=== PATIENT | female | born 2000 | race Caucasian/White ===

== ENCOUNTER 2020-11-12 08:22 | Outpatient (CLI) | payer OTHER, SELFPAY ==
[2020-11-12 09:37] LABS: SPREG INTERNAL CONTROL Positive; Serum Qual hCG Positive
== END 2020-11-12 08:23 | disposition home or self-care (01) ==
PROVIDERS: PCP Family Medicine; Visit Provider Nurse Practitioner Psychiatric/Mental Health
DX: N92.6 Irregular menstruation, unspecified (principal)
CPT/HCPCS: 36415; 84702; 84703

== ENCOUNTER 2021-01-18 00:13 | Emergency (ER) | payer OTHER, SELFPAY ==
[2021-01-18 00:15] VITALS: BP 136/84; PULSE 67; RESP 20; TEMP 36.6; O2SAT 97
--- NOTE | 2021-01-18 00:19 | ED.HA ---
HPI - Headache General Chief Complaint: Headache Stated Complaint: PAIN Time Seen by Provider: 01/18/21 00:19 Source: patient and family Mode of arrival: ambulatory Limitations: no limitations History of Present Illness HPI Narrative: 20-year-old woman comes in today complaining of a throbbing bitemporal headache which started while she was eating dinner this evening. Patient states the pain came on gradually and is associated with nausea, photophobia and increased pain with loud noise. She states she has had migraines in the past but has not had any for some time. She has had no stiff neck, vomiting, fever, cough or cold symptoms, head injury, changes in vision sore throat, head injury or sick exposures. she states she did not know what it is okay to take during her . She is at 17 weeks. MD elicited complaint: migraine Onset (ago): hour(s) (6) Onset description: gradually and while at rest Location: temporal Severity: moderate Quality & Timing: throbbing Exacerbating factors: light and noise Relieving factors: nothing Context: occurred at rest Associated symptoms: nausea Treatments prior to arrival: none Related Data Allergies Allergy/AdvReac Type Severity Reaction Status Date / Time No Known Allergies Allergy Verified 01/18/21 00:33 Review of Systems Review of Systems: All systems reviewed & are unremarkable except as noted in HPI and below Constitutional: Constitutional: Denies chills, Denies fever(s) and Denies weakness Eyes: Eyes: Denies change in vision and Reports photophobia ENT: Denies nasal congestion and Denies sore throat Cardiovascular: Cardiovascular: Reports chest pain ( Earlier this evening. It has abated.) and Denies radiating jaw, neck or arm pain Respiratory: Respiratory: Denies cough, Denies dyspnea and Denies wheezing Gastrointestinal: Gastrointestinal: Denies abdominal pain, Reports nausea and Denies vomiting Genitourinary: Genitourinary: Denies nocturia and Denies dysuria Musculoskeletal: Musculoskeletal: Denies back pain, Denies arthralgias and Denies joint swelling Integumentary/Breasts: Skin/Breast: Denies pruritus, Denies erythema and Denies rash Neurologic: Reports as per HPI, Denies vertigo, Denies dizziness, Denies syncope, Denies focal weakness and Denies numbness Endocrine: Endocrine: Denies polydipsia and Denies polyuria Hematologic/Lymphatic: Hematologic/Lymphatic: Denies easy bleeding and Denies easy bruising Allergic/Immunologic: Allergic/Immunologic: Denies lip swelling and Denies throat swelling [facility] Past Medical History Medical History (Updated 01/18/21 @ 00:33 by Kenrick Etienne MD) Migraines Social History Social History (Updated 01/18/21 @ 00:31 by Kenrick Etienne MD) Smoking status: Current every day smoker Alcohol intake: never Substance use: never Living arrangements: with family Exam Const: General: healthy appearing and alert Orientation/consciousness: patient oriented x3 Limitations: no limitations Other: [id number] acute distress HENMT: Ears: external ears normal and TM's normal bilaterally General nose exam: Normal nares present Face and sinus: normal facial exam Mouth: Yes moist mucous membranes abnormal Throat: posterior oropharynx normal Eyes: Conjunctivae: conjunctivae normal Pupils: Equal, round and reactive pupils present EOM: EOMs intact bilaterally Resp: Effort & Inspection: normal respiratory effort and not labored Auscultation: clear to auscultation bilaterally, no rales, no rhonchi and no wheezes Cardio: Rate: regular rate Rhythm: regular rhythm Heart sounds: no murmurs Skin: General skin exam: normal color, no jaundice and no pallor Rashes: no rashes Neuro: General: patient oriented x3, moves all extremities, no meningeal signs and CN's II-XI intact bilaterally Speech: normal speech Gait exam (Neuro): Normal gait present Other: normal [id number]. Extrem: General: normal to insp
[2021-01-18] MEDS: PROMETHAZINE HCL 25 MG/ML AMPUL IM (00:43)
[2021-01-18] MEDS: ACETAMINOPHEN 500 MG TABLET 1000 MG PO (00:43)
[2021-01-18 01:02] LABS: Add Urine Microscopic? NO; Appearance Urine Clear (Clear); Bilirubin Urine Negative (Negative); Blood Urine Negative (Negative); Color Urine Light Yellow (Yellow); Glucose Urine UA Negative (Negative); Ketones Urine Negative (Negative); Leukocyte Esterase Ur Negative (Negative); Nitrate Urine Negative (Negative); Protein Urine Negative (Negative); Specific Grav Ur <= 1.005 (1.010-1.020); Urobilinogen Urine 0.2 mg/dL (0.2-1.0); pH Urine 6.5 (5.0-8.0)
[2021-01-18 01:17] VITALS: BP 106/71; PULSE 69; RESP 18; TEMP 36.6; O2SAT 97
== END 2021-01-18 01:20 | disposition home or self-care (01) ==
PROVIDERS: Emergency Provider Emergency Medicine
DX: G43.009 Migraine without aura, not intractable, without status migrainosus (principal)
CPT/HCPCS: 81003; 96372; 99283; J2550

== ENCOUNTER 2021-06-26 01:42 | Inpatient (IN) | payer OTHER, MEDICAID, SELFPAY ==
[2021-06-26] VITALS (93 sets, daily range): BP systolic 87–121; BP diastolic 50–86; PULSE 60–134; RESP 18; TEMP 36.1–36.7; O2SAT 83–100; BMI 32.5
--- NOTE | 2021-06-26 01:42 | LDADM ---
This patient, Danielle Serrato, was admitted to Labor/Delivery/Recovery 106 on 06/26/21 at 01:42. Plans for labor, pain management and were discussed with patient. Patient/family oriented to hospital policies and general routines including ID bracelet, bed and alarms, visiting hours, pain management, procedures, bathroom and other care routines, personal items, smoking policy, room service/diet and guest tray routines, security routines, and visiting hours. Patient/Family are encouraged to report perceived risks to care and to ask questions if they do not understand what they are told or what they should do. See OBIX for further documentation.
[2021-06-26] MEDS: LACTATED RINGERS 1,000 ML 125 ML IV CONT ×2 (02:18→03:03)
[2021-06-26 02:26] LABS: Basophils Percent Auto 0.2 % (0.2-1.2); Eosinophils Absolute Auto 0.1 K/mm3 (0-0.3); Eosinophils Percent Auto 0.5 % (0-4.4); Hematocrit 34.6 % (37.0-47.0); Hemoglobin 11.2 g/dL (12.0-15.0); Immature Granulocyte Absolute 0.16 K/mm3 (0.00-0.031); Lymphocytes Absolute Auto 2.67 K/mm3 (0.9-3.2); Lymphocytes Percent Auto 16.1 % (18.3-44.2); Mean Corpuscular HGB Conc 32.4 g/dl (32-36); Mean Corpuscular Hemoglobin 29.6 pg (26-34); Mean Corpuscular Volume 91.3 fl (80-100); Mean Platelet Volume 10.9 fl (7.4-10.4); Monocytes Absolute Auto 1.3 K/mm3 (0.1-0.6); Monocytes Percent Auto 8.1 % (2.6-8.5); Neutrophils Absolute Auto 12.2 K/mm3 (1.3-6.7); Neutrophils Percent Auto 74.1 % (45.5-73.1); Platelet Count Result 237 k/mm3 (150-375); Red Blood Count 3.79 M/mm3 (4.2-5.4); Red Cell Distribution Width 13.3 % (11.5-14.5); White Blood Count 16.5 K/mm3 (4.5-10.0)
--- NOTE | 2021-06-26 06:34 | PM.IMHP ---
H&P: HPI History of Present Illness Date/Time: 06/26/21 06:34 Chief Complaint: intrauterine at term spontaneous labor Narrative: 21 yo at 40w0d who presents in labor. Pt reports regular contractions. She denies any leakage of fluid or vaginal bleeding. Her has been uncomplicated thus far. Review of Systems Cardiovascular: Cardiovascular: Denies chest pain, Denies leg edema, Denies palpitations, Denies dyspnea and Denies dyspnea on exertion Respiratory: Respiratory: Denies cough, Denies dyspnea and Denies dyspnea on exertion Gastrointestinal: Gastrointestinal: Denies abdominal pain, Denies constipation, Denies diarrhea, Denies nausea and Denies vomiting Genitourinary: Genitourinary: Denies hematuria, Denies urinary frequency, Denies dysuria, Denies pelvic pain, Denies urinary incontinence and Denies vaginal discharge Neurologic: Reports system reviewed and no additional complaints, except as documented Psychiatric: Psychiatric: Reports no additional psychiatric complaints Endocrine: Endocrine: Denies palpitations PMFSH Past Medical History Medical History (Updated 06/26/21 @ 06:37 by Nima Simmons MD) Migraines Family History Family History (Updated 05/27/21 @ 12:27 by Renée Beaulieu RN) Father Testicular cancer Grandparent Hypertension History of blood clots Social History Social History (Updated 01/18/21 @ 00:31 by Kenrick Etienne MD) Smoking status: Never smoker Alcohol intake: never Substance use: never Spiritual care concerns: No Meds Home Medications and Allergies Home Medications Medication Instructions Recorded Confirmed Type PNV cmb#95-ferrous fumarate-FA 1 tablet PO DAILY 06/26/21 06/26/21 History [] Allergies Allergy/AdvReac Type Severity Reaction Status Date / Time latex Allergy Itching Verified 05/27/21 12:35 Vital Signs Vital Signs - 24 hr 06/26/21 02:37 06/26/21 02:42 06/26/21 02:43 Temperature Pulse Rate 89 Blood Pressure 117/75 Pulse Oximetry 100 99 06/26/21 02:46 06/26/21 02:47 06/26/21 02:49 Temperature Pulse Rate 78 84 Blood Pressure 121/86 116/72 Pulse Oximetry 100 06/26/21 02:51 06/26/21 02:52 06/26/21 02:54 Temperature Pulse Rate 95 94 86 Blood Pressure 119/80 121/69 120/63 Pulse Oximetry 100 06/26/21 02:57 06/26/21 03:00 06/26/21 03:02 Temperature Pulse Rate 92 91 Blood Pressure 111/61 110/53 L Pulse Oximetry 100 99 06/26/21 03:03 06/26/21 03:06 06/26/21 03:07 Temperature Pulse Rate 82 74 Blood Pressure 94/53 L 98/53 L Pulse Oximetry 100 06/26/21 03:09 06/26/21 03:12 06/26/21 03:15 Temperature Pulse Rate 80 83 84 Blood Pressure 93/59 L 108/53 L 102/55 L Pulse Oximetry 100 06/26/21 03:17 06/26/21 03:18 06/26/21 03:21 Temperature Pulse Rate 76 79 Blood Pressure 98/53 L 87/52 L Pulse Oximetry 99 06/26/21 03:22 06/26/21 03:27 06/26/21 03:30 Temperature 36.6 C Pulse Rate 71 Blood Pressure 102/54 L Pulse Oximetry 99 100 06/26/21 03:32 06/26/21 03:37 06/26/21 03:42 Temperature Pulse Rate Blood Pressure Pulse Oximetry 100 99 100 06/26/21 03:45 06/26/21 03:47 06/26/21 03:52 Temperature Pulse Rate 79 Blood Pressure 102/60 Pulse Oximetry 100 100 06/26/21 03:57 06/26/21 04:00 06/26/21 04:02 Temperature Pulse Rate 75 Blood Pressure 99/56 L Pulse Oximetry 100 100 06/26/21 04:07 06/26/21 04:12 06/26/21 04:15 Temperature Pulse Rate 76 Blood Pressure 97/52 L Pulse Oximetry 100 99 06/26/21 04:17 06/26/21 04:22 06/26/21 04:27 Temperature Pulse Rate Blood Pressure Pulse Oximetry 99 99 99 06/26/21 04:30 06/26/21 04:32 06/26/21 04:37 Temperature Pulse Rate 75 Blood Pressure 110/59 L Pulse Oximetry 99 99 06/26/21 04:42 06/26/21 04:45 06/26/21 04:47 Temperature Pulse Rate 98 Blood Pressure 99/72 L Pulse Oxime
--- NOTE | 2021-06-26 08:06 | PM.OBPRVD ---
OB - Delivery Note Procedure Delivery date: 06/26/21 Procedure: Patient pushed for a spontaneous vaginal delivery. The fetus was delivered atraumatically and placed on the maternal abdomen. The cord was clamped and cut after 1 minute of life. The cord was double clamped and cut and a segment of cord was collected for cord gases. Cord blood was collected for blood type and Coomb's testing. The placenta delivered spontaneously and was noted to be intact. The perineum was inspected and there were bilateral 1st degree vaginal lacerations. The lacerations were repaired with 3-0 vicryl in the usual fashion. The uterus was firm and good hemostasis was noted. The patient and fetus were stable in the delivery room. Intrapartal events: None Induction method: none Delivery monitor: external FHT Route of delivery: Episiotomy description: None Laceration Description: Vaginal - 1st Degree (bilateral) Delivery repair: vicryl Specimen: No Quantitative Blood Loss (ml): 250 Anesthesia type: Epidural Disposition: floor () Complications: No immediate complications [place] Baby Date of : 06/26/21 Time of : 07:45 Weeks of gestation at delivery: 40 Infant gender: Male Weight (pounds): 7 Weight (ounces): 8 presentation: vertex position: Right Occiput Anterior Placenta delivery description: Spontaneous cord vessel description: 3 Vessels and Nuchal Cord score one minute: 8 score five minutes: 9
[2021-06-26] MEDS: OXYTOCIN 30 UNITS/NS 500 ML 30 UNITS/500 ML BAG 125 UNITS IV CONT (09:08)
--- NOTE | 2021-06-26 11:17 | PC.NURSE ---
Patient transferred to post room #280 per wheelchair from labor and delivery. Support person present. Oriented to unit, room, information board, rooming in, admission packet and security measures. Patient verbalizes understanding.
[2021-06-26] MEDS: IBUPROFEN 600 MG TABLET PO (11:30)
[2021-06-26] MEDS: BENZOCAINE 20% AER SPR (*SP) 56 GM CAN 1 SPRAY TOPICAL (11:30)
--- NOTE | 2021-06-26 11:50 | PC.NURSE ---
Mother called out for assist with feeding, reporting eagerly fed for first feeding. . Infant is able to freely thrust tongue to gum ridge and flange both lips, frenulum appears to be tight. Skin is intact on both nipples, no redness and bruising noted. Reviewed feeding cues, frequencies, duration of feedings, feeding elimination flow sheet, and signs of adequate intake. Demonstrated stimulation techniques to wake infant for feeding. Assisted with to breast. Reviewed positioning/alignment in cross cradle, holding breast in ?U? hold and guided asymmetrical latch on. Reviewed rational for each. able to latch correctly within a few attempts. nursed eagerly with steady draws and occasional swallowing noted, some pausing noted. Reviewed signs of a correct latch, effective nursing and suck swallow ratio. Suggested mother stimulate while feeding to increase stimulation for milk supply, for increased intake and to assist with maintaining deep latch. would slip to shallow latch causing tenderness. Demonstrated how to adjust latch more deeply while feeding as needed. Mother reports she can feel the difference in latch with less tenderness. Nipple care reviewed of lanolin after feedings, warm compresses as needed. Instructed mother to call out for RN assistance if she is unable to latch infant for feeding or she has discomfort with nursing. Instructed feeding should be initiated three hours from start of last feeding or if feeding cues are noted before. Mother voiced understanding of information shared.
[2021-06-26] MEDS: WITCH HAZEL 40 PADS 1 PAD TOPICAL (12:03)
[2021-06-26] MEDS: LANOLIN (LANSINOH) 7.5 GM CREAM 1 APPLIC TOPICAL (12:04)
[2021-06-26] MEDS: ACETAMINOPHEN 325 MG TABLET 650 MG PO (16:27)
[2021-06-26] MEDS: DOCUSATE SODIUM 100 MG CAPSULE PO (16:30)
--- NOTE | 2021-06-26 16:30 | PC.NURSE ---
Pt introductions made and plan of care discussed per post , pain management, breast feeding, daily care activities. PT and fob both recipients of such instructions and verbalized understanding of such care. Fob may have a barrier to learning in that he speaks fluent maltese and minimal togolese. PT and fob both received instructions per one to one discussion, mom baby care guide and demonstrations. PT verbalized understanding of such care.
[2021-06-27 00:26] VITALS: BP 111/80; PULSE 88; RESP 18; TEMP 36.8; O2SAT 99
[2021-06-27] MEDS: IBUPROFEN 600 MG TABLET PO ×3 (01:09→17:48)
[2021-06-27 04:15] VITALS: BP 108/61; PULSE 87; RESP 18; TEMP 36.6; O2SAT 99
[2021-06-27 04:48] LABS: Hematocrit 30.5 % (37.0-47.0); Hemoglobin 9.9 g/dL (12.0-15.0)
--- NOTE | 2021-06-27 07:13 | PC.NURSE ---
Pt introductions made and plan of care discussed per post , pain management, breast feeding, daily care activities. PT and fob both recipients of such instructions and verbalized understanding of such care. Fob may have a barrier to learning in that he speaks fluent mongolian and minimal citizen of [place]. PT and fob both received instructions per one to one discussion, mom baby care guide and demonstrations. PT verbalized understanding of such care.
--- NOTE | 2021-06-27 08:08 | PM.OBPNVD ---
OB - PN: Subj Subjective Date/time seen: 06/27/21 08:08 Patient comments: no complaints, pain well controlled and tolerating diet [place] feeding status: exclusively breast feeding Narrative: patient doing well this AM. No complaints. Pain is well controlled. She reports minimal bleeding. She is ambulating and voiding without difficulty. She is tolerating PO. She denies N/V, fever, chills. OB - PN: Obj Data Labs CBC & Chem 7: 06/27/21 04:05 Labs: Laboratory Results - last 24 hr 06/27/21 04:05 Hgb 9.9 L Hct 30.5 L OB - PN A/P Plan day: 1 Plan: routine care Comments: patient doing well H/H 9.03/26, continue iron supplementation plan for infant circumcision today. risks, benefits, alternatives discussed. patient consented for procedure continue routine care Time Spent With Patient Time: Total time spent is greater than 50% in coordination of care (as documented) at patient's floor/unit and/or counseling patient: Time with patient: less than 15 minutes Review of Systems Review of Systems: All systems reviewed & are unremarkable except as noted in HPI and below Exam Const: General: comfortable and no acute distress Resp: Effort & Inspection: normal respiratory effort Cardio: Rate: regular rate GI: GI Palp: Yes Soft to palpation and No Tenderness to palpation present (GI) Auscultation: normal bowel sounds Other: fundus firm and below umbilicus. Psych: Affect: normal affect
--- NOTE | 2021-06-27 08:09 | PM.OBDSVD ---
DS: Admitting Diagnosis Discharge Date 06/28/21 Admitting Diagnosis intrauterine at term spontaneous labor OB - DS: Summary OB Procedures : None OB Procedures Intrapartum: Spontaneous Vag Delivery OB Procedures: : None Status at Discharge Functional status at discharge: independent ambulation Overall status at discharge: patient is back to baseline Time Spent with Patient Time attestation: Total time spent providing and/or coordinating discharge services: Time spent: Less than 30 minutes Exam Const: General: comfortable and no acute distress Resp: Effort & Inspection: normal respiratory effort Auscultation: clear to auscultation bilaterally Cardio: Rate: regular rate GI: GI Palp: Yes Soft to palpation Auscultation: normal bowel sounds Other: Fundus firm below umbilicus Psych: Appearance: grossly normal Mental Status: mental status grossly normal Affect: normal affect DS: Data Data Completed and Pending Labs on day of discharge: Labs from last 24 hours 06/27/21 04:05 Hgb 9.9 L Hct 30.5 L Discharge Plan Discharge Discharging Clinician: Nmia Simmons Patient Disposition: Home, Self-Care Activity: as tolerated and pelvic rest Diet: regular Discharge Instructions: Education: Mom and Baby Guide Given to: Mother Follow-Up: Call your delivering provider's office for an appointment to be seen in: 6 Weeks Mom and baby should come to the [facility] for the follow-up appointment. Appointment Date/Time: June 29, 2021 at 8:00 am What to expect at your follow-up visit: Blood Pressure Check Physical Assessment Call [phone] if you are unable to keep your appointment time. BREAST CARE: * Wear a snug supportive bra. * For engorgement discomfort: Breast Feeding: * Apply warm moist washcloths * Express milk as needed to relieve engorgement * Wear loose clothing EPISIOTOMY/PERINEAL CARE: * Until bleeding stops, use your maria l bottle after urinating * Change your pad frequently throughout the day * You may take sitz baths several times a day (fill your bathtub with warm water and soak for 20 minutes.) Do NOT bathe in the water * No tub baths until seen by your physician - You may shower ACTIVITY: * Rest as much as possible. * Do not exercise or lift anything heavier than your baby (such as laundry or other children.) * Avoid stairs or driving as much as possible. * Do not put anything into the vagina. No douching, tampons, or sexual activity until seen by physician. NOTIFY PHYSICIAN IF YOU HAVE ANY QUESTIONS OR IF ANY OF THE FOLLOWING SYMPTOMS OCCUR: * If your episiotomy becomes red, swollen, or more painful than what you have experienced in the hospital. * If your vaginal bleeding becomes foul smelling. * If your vaginal bleeding becomes more heavy than a period or if your bleeding changes from pink to bright red. However, you may pass an occasional walnut-sized clot once or twice for the first week . * If you experience a sharp, shooting pain in you calves. * If you discover a hard, reddened area on your breast or if you experience flu-like symptoms. DIET: * Eat regular, well-balanced meals. * Drink plenty of fluids daily. If , drink to thirst. Patient Instructions: Vaginal Delivery (DC) Follow-up/Referrals: Nathaniel Bruno MD [Physician] - 6 Weeks Discharge Medications: New acetaminophen [Mapap (acetaminophen)] 325 mg Tablet 650 mg PO Q6H PRN (Reason: Mild Pain (1-3) Or Headache) Qty: 30 RF: 0 polysaccharide iron complex 150 mg iron Capsule 150 mg PO BIDWM Qty: 60 RF: 0 ibuprofen 600 mg Tablet 600 mg PO Q6H PRN (Reason: Cramping) Qty: 30 RF: 0 Continued PNV cmb#95-ferrous fumarate-FA [] 28 mg iron- 800 mcg Tablet 1 tablet PO DAILY RF: 0 Date of admission: 06/26/21 01:42 Primary Care Provider: Xin
[2021-06-27] MEDS: MULTIVIT/MIN/PREN/FOL AC/IRON TABLET 1 TAB PO (10:05)
[2021-06-27] MEDS: POLYSACCHARIDE IRON COMPLEX 150 MG CAPSULE PO ×2 (10:05→17:49)
[2021-06-27] MEDS: DOCUSATE SODIUM 100 MG CAPSULE PO ×2 (10:05→17:49)
[2021-06-27] MEDS: ACETAMINOPHEN 325 MG TABLET 650 MG PO ×2 (10:06→17:48)
[2021-06-27 10:15] VITALS: BP 103/63; PULSE 86; RESP 18; TEMP 36.2; O2SAT 100
[2021-06-27 19:45] VITALS: BP 115/68; PULSE 85; RESP 16; TEMP 36.9; O2SAT 99
[2021-06-28] MEDS: ACETAMINOPHEN 325 MG TABLET 650 MG PO (02:37)
[2021-06-28] MEDS: IBUPROFEN 600 MG TABLET PO (02:37)
[2021-06-28 08:00] VITALS: BP 103/73; PULSE 87; RESP 18; TEMP 36.4; O2SAT 100
[2021-06-28] MEDS: BENZOCAINE 20% AER SPR (*SP) 56 GM CAN 1 SPRAY TOPICAL (08:28)
[2021-06-28] MEDS: WITCH HAZEL 40 PADS 1 PAD TOPICAL (08:28)
[2021-06-28] MEDS: MULTIVIT/MIN/PREN/FOL AC/IRON TABLET 1 TAB PO (08:28)
[2021-06-28] MEDS: DOCUSATE SODIUM 100 MG CAPSULE PO (08:28)
[2021-06-28] MEDS: POLYSACCHARIDE IRON COMPLEX 150 MG CAPSULE PO (08:30)
[2021-06-28] MEDS: LANOLIN (LANSINOH) 7.5 GM CREAM 1 APPLIC TOPICAL (08:31)
--- NOTE | 2021-06-28 09:00 | PC.NURSE ---
Patient viewed the discharge video Mother & Baby Care, The First Two Weeks . Patient was given the opportunity and encouraged to ask questions. Patient verbalized understanding of information shared and has been given the mother/baby guide for home reference.
--- NOTE | 2021-06-28 09:28 | PC.NURSE ---
Self care and infant care discharge instructions given including follow up visit date and time. Mother verbalized understanding. No questions or concerns voiced. Very pleasant and cooperative.
[2021-06-29 08:47] VITALS: BP 118/67; PULSE 82; RESP 20; TEMP 37.1; O2SAT 100
[2021-06-29 09:28] LABS: Rapid Plasma Reagin Non-Reactive (NonReactive)
== END 2021-06-28 10:36 | disposition home or self-care (01) | DRG 807 ==
LOC: ANHLDR 02:14 → ANHOB2 06-27 08:10 → ANHLDR 07-01 09:35 → ANHOB2 07-01 09:35
PROVIDERS: Admitting Provider Student in an Organized Health Care Education/Training Program; PCP Family Medicine; Visit Provider Student in an Organized Health Care Education/Training Program
DX: O76 Abnormality in fetal heart rate and rhythm complicating labor and delivery (principal); Z37.0 Single live birth; O70.0 First degree perineal laceration during delivery; O69.81X0 Labor and delivery complicated by cord around neck, without compression, not applicable or unspecified; Z3A.40 40 weeks gestation of pregnancy
CPT/HCPCS: 36415; 85014; 85018; 85025; 86592; 86850; 86900; 86901; A9270; J2590; J2795; J7120

== ENCOUNTER 2024-09-18 06:16 | Inpatient (IN) | payer OTHER, MEDICAID, SELFPAY ==
[2024-09-09 20:15] VITALS: BP 115/77; PULSE 77
[2024-09-09 20:30] VITALS: BP 111/72; PULSE 77
[2024-09-09 20:45] VITALS: BP 114/71; PULSE 81
[2024-09-18] VITALS (58 sets, daily range): BP systolic 94–135; BP diastolic 41–118; PULSE 63–131; RESP 16–18; TEMP 36.3–36.8; O2SAT 95–100; BMI 32.9
--- NOTE | 2024-09-18 07:14 | P.PNAN_ITS ---
Anes - Eval Pre Procedure Procedure: labor epidural Date/Time: 09/18/24 07:14 Surgeon: lázaro Preop Diagnosis: pain during labor Pre Op Diagnosis: IOL Patient Data Age: 24 Gender: F Height: Weight: Last Vital Signs Pulse 81 09/09/24 20:45 BP 114/71 09/09/24 20:45 Allergies Allergy/AdvReac Type Severity Reaction Status Date / Time latex Allergy Itching Verified 08/15/24 13:47 Home Medications ?Medication ?Instructions ?Recorded ?Confirmed ?Type vit no.95-ferrous 1 tablet PO DAILY 06/26/21 08/15/24 History fumarate 28 mg-folic acid 800 mcg tablet () acetaminophen 325 mg tablet (Mapap 650 mg (2 x 325 mg) PO Q6H PRN 06/27/21 08/15/24 Rx (acetaminophen)) Mild Pain (1-3) Or Headache #30 tabs Patient hx anesthesia problems: none Family hx anesthesia problems: none Results Review: All pre-operative results and documents have been reviewed as part of the pre- operative evaluation. PMFSH Past Medical History Medical History (Updated 09/18/24 @ 07:15 by Gerri Vega CRNA) IUP (intrauterine ), incidental Depression Anxiety Migraines Family History Family History (Updated 08/15/24 @ 13:34 by Joslyn Grimes RN) Father Testicular cancer Grandparent History of blood clots Hypertension Mother Hypertension Social History Social History (Updated 01/18/21 @ 00:31 by Kenrick Etienne, ) Smoking status: Never smoker Alcohol intake: never Substance use: never Living arrangements: with family Spiritual care concerns: No Exam Day of Procedure 09/18/24 07:14
[2024-09-18 07:19] LABS: Basophils Absolute Auto 0.1 K/mm3 (0.0-0.1); Basophils Percent Auto 0.5 % (0.2-1.2); Eosinophils Absolute Auto 0.1 K/mm3 (0-0.3); Eosinophils Percent Auto 0.8 % (0-4.4); Hematocrit 35.9 % (37.0-47.0); Hemoglobin 11.6 g/dL (12.0-15.0); Immature Granulocyte Absolute 0.04 K/mm3 (0.00-0.031); Immature Granulocyte Percent A 0.3 % (0-0.5); Lymphocytes Absolute Auto 2.67 K/mm3 (0.9-3.2); Lymphocytes Percent Auto 23.4 % (18.3-44.2); Mean Corpuscular HGB Conc 32.3 g/dl (32-36); Mean Corpuscular Hemoglobin 28.2 pg (26-34); Mean Corpuscular Volume 87.3 fl (80-100); Mean Platelet Volume 11.9 fl (7.4-10.4); Monocytes Absolute Auto 0.9 K/mm3 (0.1-0.6); Neutrophils Absolute Auto 7.7 K/mm3 (1.3-6.7); Platelet Count Result 211 k/mm3 (150-375); Red Blood Count 4.11 M/mm3 (4.2-5.4); Red Cell Distribution Width 14.3 % (11.5-14.5); White Blood Count 11.4 K/mm3 (4.5-10.0)
[2024-09-18] MEDS: LACTATED RINGERS 1,000 ML 125 ML IV CONT (07:33)
[2024-09-18] MEDS: OXYTOCIN 30 UNITS/NS 500 ML 30 UNITS/500 ML BAG IV CONT (07:34)
[2024-09-18 08:14] LABS: HIV 1/2 Ab P24 Ag Result Negative (Negative)
--- NOTE | 2024-09-18 08:17 | LDADM ---
This patient, Danielle Segura, was admitted to Labor/Delivery/Recovery 106 on 09/18/24 at 06:16. Plans for labor, pain management and were discussed with patient. Patient/family oriented to hospital policies and general routines including ID bracelet, bed and alarms, visiting hours, pain management, procedures, bathroom and other care routines, personal items, smoking policy, room service/diet and guest tray routines, security routines, and visiting hours. Patient/Family are encouraged to report perceived risks to care and to ask questions if they do not understand what they are told or what they should do. See OBIX for further documentation.
--- NOTE | 2024-09-18 08:53 | WPDOBADMIT ---
Obstetrics - Admit Note Admission Note: record reviewed. Additions to the history and/or subsequent changes in the physical findings follow. 26 y/o at 41 weeks here for induction of labor. GBS neg. AVSS NST reactive TOCO: contractions every 3-4 min ABD soft, nontender, gravid, vertex EXT nontender Cervix 4/80/-2. AROM with clear fluid. IUPC placed. Vertex. A: IUP at term with favorable cervix. P: Oxytocin. Anticipate .
[2024-09-18 09:43] LABS: Syphilis IgG/IgM Antibody Negative (Negative)
--- NOTE | 2024-09-18 11:31 | PM.OBPRVD ---
OB - Vaginal Delivery Note Procedure Delivery date: 09/18/24 Events: Elective Induction of Labor Induction method: Per Pitocin Protocol Delivery augmentation: Rupture of Membranes Delivery monitor: External FHT, External Uterine and Internal Uterine Route of delivery: Laceration Description: Perineal - 2nd Degree Delivery repair: vicryl (3-0) Specimen: Yes (cord blood) Quantitative Blood Loss (ml): 240 Anesthesia type: Local (1% lidocaine) Disposition: PACU Complications: None Narrative: 24 y/o at 41 weeks gestation who presented to the hospital for induction of labor. Oxytocin was administered intravenously. Amniotomy was performed with return of clear fluid. Her labor progressed and her cervix dilated completely. She pushed with good effort and delivered the 's head to the perineum, followed by the body. The nose and mouth were bulb suctioned. After a delay, the cord was clamped and cut. The infant was handed off the field. Cord blood was collected. The placenta delivered spontaneously and was grossly normal in appearance. The usual 3 vessel cord was noted. A second degree midline perineal laceration was sustained. This was infiltrated with 12 mL 1% lidocaine and reapproximated using 3 0 Vicryl in the usual layered fashion. Excellent hemostasis resulted as did excellent reapproximation of the normal anatomy. Needle and instrument counts were correct. The patient was taken to recovery room in stable condition. The went to the nursery in stable condition. I was present and scrubbed for the entire delivery. Baby Date of : 09/18/24 Time of : 11:10 Gestational Age by Date: 41 gender: Female Weight (pounds): 8 Weight (ounces): 2 presentation: vertex position: Left Occiput Anterior Placenta delivery description: Spontaneous and Normal Configuration Cord Vessel Description: 3 Vessels and Delayed Cord Clamping score one minute: 8 score five minutes: 9
--- NOTE | 2024-09-18 11:33 | P.DS_ITS ---
DS: Admitting Diagnosis Discharge Date 09/19/24 Admitting Diagnosis IUP a 41 weeks DS: Discharge Diagnosis Discharge Diagnosis (1) (normal spontaneous vaginal delivery): Code(s): O80 - Encounter for full-term uncomplicated delivery Status: Acute OB - DS: Summary OB Procedures : None OB Procedures Intrapartum: Spontaneous Vag Delivery OB Procedures: : None Peripartum Data Laceration Description: Perineal - 2nd Degree Time Spent with Patient Time attestation: Total time spent providing and/or coordinating discharge services: DS: Data Data Completed and Pending Labs on day of discharge: Labs from last 24 hours 09/18/24 07:12 WBC 11.4 H RBC 4.11 L Hgb 11.6 L Hct 35.9 L MCV 87.3 MCH 28.2 MCHC 32.3 RDW 14.3 Plt Count 211 MPV 11.9 H Immature Gran % (Auto) 0.3 Neut % (Auto) 67.0 Lymph % (Auto) 23.4 [place] % (Auto) 8.0 Eos % (Auto) 0.8 Baso % (Auto) 0.5 Lymph # (Auto) 2.67 [place] # (Auto) 0.9 H Eos # (Auto) 0.1 Baso # (Auto) 0.1 Abs Immat Gran (auto) 0.04 H Absolute Neuts (auto) 7.7 H Absolute Nucleated RBC 0.000 Nucleated RBC % 0.0 Syphilis IgG/IgM Ab Negative HIV 1&2 Ab/P24 Ag 4thGn Negative Blood Type A Positive Antibody Screen Negative Discharge Plan Discharge Attending physician on discharge: Nathaniel Bruno Discharging Clinician: Nathaniel Bruno Patient Disposition: Home, Self-Care Activity: pelvic rest Diet: regular Discharge Instructions: Call or return if temperature above 100.4? F, increased abdominal pain, increased vaginal bleeding or any new problems. Patient Language: [place] Stand Alone Forms: General Discharge Information Follow-up/Referrals: Nathaniel Bruno MD [Physician] - 6 Weeks Discharge Medications: New ibuprofen 600 mg tablet 600 mg PO Q6H PRN (Reason: cramps) Qty: 30 0RF Continued PNV cmb#95-ferrous fumarate-FA [] 28 mg iron- 800 mcg Tablet 1 tablet PO DAILY Discontinued acetaminophen [Mapap (acetaminophen)] 325 mg Tablet 650 mg PO Q6H PRN (Reason: Mild Pain (1-3) Or Headache) Qty: 30 0RF Date of admission: 09/18/24 06:16 Primary Care Provider: XinLeonard Admitting Provider: Nathaniel Bruno Attending physician on admission: Nathaniel Bruno Condition: Stable
[2024-09-18] MEDS: OXYTOCIN 30 UNITS/NS 500 ML 30 UNITS/500 ML BAG 125 UNITS IV CONT (12:00)
[2024-09-18] MEDS: IBUPROFEN 600 MG TABLET PO ×2 (13:24→20:30)
[2024-09-18] MEDS: BENZOCAINE 20% AER SPR (*SP) 56 GM CAN 1 SPRAY TOPICAL (13:25)
[2024-09-18] MEDS: WITCH HAZEL 40 PADS 1 PAD TOPICAL (13:25)
--- NOTE | 2024-09-18 15:50 | PC.NURSE ---
Introductions were made, then consulted with patient to assess needs related to . Discussed with mother her?plans to feed?her and the?experience so far. She states that her first baby had a tongue tie that was clipped. Mom says this baby's latch feels very similar to her first's and the nursery RN confirmed that baby's tongue appears tight. Mom is hopeful that the car pilot may be able to clip the frenulum tonight. She has some nipple pain and small blisters after 3 breast feedings. Resources provided for inpatient and outpatient services with the feeding sheet, mom/baby guide and name written on the communication board. Mother voiced understanding of information and will call if there is a request for assistance. Reported to the Primary RN.
[2024-09-19] VITALS: BP 108/68; PULSE 63; RESP 16; TEMP 36.5; O2SAT 98
[2024-09-19] MEDS: IBUPROFEN 600 MG TABLET PO (02:38)
[2024-09-19 04:40] VITALS: BP 93/71; PULSE 73; RESP 16; TEMP 36.7; O2SAT 99
[2024-09-19 05:02] LABS: Hematocrit 31.3 % (37.0-47.0)
[2024-09-19 08:00] VITALS: PULSE 69; RESP 18; O2SAT 99
[2024-09-19 08:15] VITALS: BP 113/82; PULSE 69; RESP 18; TEMP 36.7; O2SAT 99
--- NOTE | 2024-09-19 08:45 | PC.NURSE ---
Mother verbalizes she is able to independently latch with appropriate positioning and alignment. She has some initial latch on tenderness that dissipates with feeding. Baby had her tongue tie clipped last night and mom feels that it has improved the latch. is currently meeting outcomes for weight, output, jaundice, blood sugar and feeding frequencies of 8-12 times in 24 hours. Mother declines any additional assistance or education at this time. Mother is encouraged to call for assistance if her doesn?t latch, pain with latching, questions or concerns. Mother voiced understanding of information shared along with the mom/baby guide for an additional resource. Name/number on communication board. Reported to the Primary RN.
[2024-09-19] MEDS: DOCUSATE SODIUM 100 MG CAPSULE PO (09:27)
[2024-09-19] MEDS: MULTIVIT/MIN/PREN/FOL AC/IRON TABLET 1 TAB PO (09:27)
--- NOTE | 2024-09-19 10:45 | PC.NURSE ---
Patient called out for a latch check. Baby is latched in cradle on the left breast. She appears to have an optimal latch. Mom is comfortable and confident. She requested lanolin for sore nipples. The initial latch on is rather tender but feels better as baby nurses. Mom had blisters from the feedings prior to the frenectomy. RN updated.
--- NOTE | 2024-09-19 12:46 | P.PNOB_ITS ---
OB - PN: Subj Subjective Date/time seen: 09/19/24 12:46 Narrative: Pain OK. Would like to go home. OB - PN: Obj Data Labs 09/19/24 04:49 Labs: Laboratory Results - last 24 hr 09/19/24 04:49 Hgb 10.0 L Hct 31.3 L OB - PN A/P Assessment and Plan (1) (normal spontaneous vaginal delivery): Code(s): O80 - Encounter for full-term uncomplicated delivery Status: Acute Plan day: 1 Comments: A: PPD#1, doing well. P: Home to f/u 6 weeks. Exam 2 Psych: Other: AVSS ABD soft, nontender, fundus firm EXT nontender
--- NOTE | 2024-09-19 14:09 | PC.NURSE ---
Patient was given the opportunity to view the discharge video [facility] Baby [facility], The First Two Weeks and to ask questions. Patient declined viewing the video and has been given the mother/baby guide for home reference.
[2024-09-19] MEDS: TETANUS,DIPHTHERIA,AC PERTUSSIS ADULT (0.5 ML) BOOSTRIX IM (14:23)
[2024-09-19] MEDS: MEASLES,MUMPS,RUBELLA VACCINE 0.5 ML VIAL SUB-Q (14:24)
[2024-09-20 10:15] VITALS: BP 118/75; PULSE 78; RESP 18; TEMP 36.6; O2SAT 100
== END 2024-09-19 15:00 | disposition home or self-care (01) | DRG 807 ==
LOC: ANHLDR 11:34 → ANHOB2 14:32
PROVIDERS: Admitting Provider Obstetrics & Gynecology; PCP Family Medicine; Visit Provider Obstetrics & Gynecology
DX: O62.3 Precipitate labor (principal); Z37.0 Single live birth; Z3A.41 41 weeks gestation of pregnancy; O70.1 Second degree perineal laceration during delivery
CPT/HCPCS: 36415; 85014; 85018; 85025; 86593; 86703; 86850; 86900; 86901; 90710; 90715; A9270; G0432; J2590; J7120